=== PATIENT | female | born 1990 | race Caucasian/White ===

== ENCOUNTER 2016-11-21 00:36 | Inpatient (IN) | payer MEDICAID, OTHER ==
[~2016-11-21] VITALS: Ht 157.5 cm; Wt 78.1 kg
[~2016-11-21 00:36] MED LIST: CLON.5 PO; CYCL10 PO; IBUP-2071 PO
[2016-11-21] MEDS ORDERED: LAMO100 PO (00:48)
[2016-11-21] MEDS ORDERED: VENL-193 PO (00:48)
[2016-11-21] MEDS ORDERED: BACL10TA PO (00:48)
[2016-11-21] MEDS ORDERED: TRAZ-144 PO (00:48)
[2016-11-21 01:17] LABS: ANION GAP 6 mmol/L (8-16); CALCIUM, TOTAL 8.7 mg/dL (8.8-10.5); CARBON DIOXIDE 30 mmol/L (22-29); CHLORIDE 105 mmol/L (98-107); CREATININE 0.74 mg/dL (0.60-1.30); GLOMERULAR FILTR. RATE CALC > 60 mL/min (>60); POTASSIUM 4.3 mmol/L (3.5-5.1); SODIUM SERUM 141 mmol/L (136-145); UREA NITROGEN, BLOOD 9 mg/dL (7-18)
[2016-11-21 01:18] LABS: BASOPHILS # (AUTO) 0.03 K/uL (0.00-0.20); BASOPHILS % (AUTO) 0.3 % (0.0-2.0); EOSINOPHILS # (AUTO) 0.06 K/uL (0.00-0.70); EOSINOPHILS % (AUTO) 0.71 % (1.0-6.0); HEMOGLOBIN 11.9 g/dL (12.0-16.0); LYMPHOCYTES # (AUTO) 3.1 K/uL (1.0-4.8); LYMPHOCYTES % (AUTO) 33.6 % (22.0-44.0); MEAN CORPUSCULAR HEMOGLOBIN 28.6 pg (26.0-34.0); MEAN CORPUSCULAR VOLUME 84 fL (80-100); MONOCYTES # (AUTO) 0.5 K/uL (0.1-1.0); MONOCYTES % (AUTO) 5.5 % (2.0-9.0); NEUTROPHILS # (AUTO) 5.4 K/uL (1.8-7.7); NEUTROPHILS % (AUTO) 59.8 % (40.0-70.0); PLATELET COUNT (AUTO) 289 K/uL (150-450); RED BLOOD CELL COUNT(AUTO) 4.15 MIL/uL (4.00-5.20); WHITE BLOOD COUNT (AUTO) 9.1 K/uL (4.5-11.0)
[2016-11-21 01:24] LABS: ALANINE AMINOTRANSFERASE 15 U/L (12-78); ALBUMIN 3.8 g/dL (3.4-5.0); ASPARTATE AMINOTRANSFERASE 11 U/L (15-37); BILIRUBIN,TOTAL 0.3 mg/dL (0.1-1.0); TOTAL PROTEIN, SERUM 7.4 g/dL (6.4-8.2)
[2016-11-21] MEDS ORDERED: HydrOXYzine HCL 25 MG TABLET PO ONE (03:45)
[2016-11-21 04:37] VITALS: BP 102/60
[2016-11-21 05:06] LABS: ADD UA MICROSCOPIC NO; APPEARANCE,URINE CLEAR (CLEAR); GLUCOSE, URINE (UA) NEGATIVE (NEGATIVE); KETONES,URINE NEGATIVE (NEGATIVE); LEUKOCYTE ESTERASE ,URINE NEGATIVE (NEGATIVE); OCCULT BLOOD,URINE NEGATIVE (NEGATIVE); PH,URINE 6.5 (5.0-8.0); PROTEIN,URINE NEGATIVE (NEGATIVE)
[2016-11-21] MEDS ORDERED: VENLAFAXINE HCL 75 MG TABLET PO SCH (10:45)
[2016-11-21] MEDS: LamoTRIgine 100 MG TABLET PO SCH (12:22)
[2016-11-21] MEDS: VENLAFAXINE HCL 75 MG ER CAPSULE PO SCH (12:22)
[2016-11-21 12:42] VITALS: BP 98/58
[2016-11-21] MEDS ORDERED: IBUPROFEN 400 MG TABLET PO PRN (12:45)
[2016-11-21] MEDS ORDERED: ACETAMINOPHEN 325 MG TABLET PO PRN (12:45)
[2016-11-21] MEDS: LORazepam 2 MG TABLET PO PRN ×2 (13:35→19:28)
[2016-11-21] MEDS: FERROUS SULFATE 325 MG EC TABLET PO SCH (18:52)
[2016-11-21 19:33] VITALS: BP 113/68
[2016-11-21] MEDS: ZOLPIDEM TARTRATE 10 MG TABLET PO PRN (23:29)
[2016-11-22] MEDS: LORazepam 2 MG TABLET PO PRN ×3 (07:50→19:46)
[2016-11-22 08:05] VITALS: BP 113/65
[2016-11-22] MEDS: VENLAFAXINE HCL 75 MG ER CAPSULE PO SCH (08:29)
[2016-11-22] MEDS: LamoTRIgine 100 MG TABLET PO SCH (08:29)
[2016-11-22] MEDS: FERROUS SULFATE 325 MG EC TABLET PO SCH ×2 (08:29→16:47)
[2016-11-22 16:34] VITALS: BP 117/70
[2016-11-22] MEDS: HALOPERIDOL 5 MG TABLET PO PRN (16:47)
[2016-11-23 00:38] VITALS: BP 106/60
[2016-11-23 01:56] VITALS: BP 106/65
[2016-11-23] MEDS: ZOLPIDEM TARTRATE 10 MG TABLET PO PRN (02:02)
[2016-11-23] MEDS: FERROUS SULFATE 325 MG EC TABLET PO SCH ×2 (06:42→17:01)
[2016-11-23 08:01] VITALS: BP 100/65
[2016-11-23] MEDS: VENLAFAXINE HCL 75 MG ER CAPSULE PO SCH (08:23)
[2016-11-23] MEDS: LamoTRIgine 100 MG TABLET PO SCH (08:23)
[2016-11-23] MEDS: HALOPERIDOL 5 MG TABLET PO PRN (08:25)
[2016-11-23 11:50] VITALS: BP 116/72
[2016-11-23] MEDS: LORazepam 2 MG TABLET PO PRN (11:51)
[2016-11-23] MEDS ORDERED: VENL-67 PO (16:00)
[2016-11-23 16:02] VITALS: BP 105/63
[2016-11-23] MEDS ORDERED: FERR-89 PO (16:04)
== END 2016-11-23 17:15 | disposition home or self-care (01) | DRG 751 ==
LOC: EMS 00:37 → AHU 03:45 → B2S 11-22 10:55
PROVIDERS: ADMIT Psychiatry & Neurology Child & Adolescent Psychiatry; ATTEND Psychiatry & Neurology Child & Adolescent Psychiatry
DX: F33.2 Major depressive disorder, recurrent severe without psychotic features (principal); R45.851 Suicidal ideations; D64.9 Anemia, unspecified; F17.200 Nicotine dependence, unspecified, uncomplicated; G89.29 Other chronic pain; Z88.5 Allergy status to narcotic agent; Z88.8 Allergy status to other drugs, medicaments and biological substances
CPT/HCPCS: 99285